=== PATIENT | male | born 1970 | race Caucasian/White ===

== ENCOUNTER 2020-10-27 08:16 | Outpatient (REF) | payer BC, SELFPAY ==
[2020-10-27 11:53] LABS: Alanine Aminotransferase 17 U/L (0-40); Albumin Level 4.1 g/dL (3.5-5.0); Alkaline Phosphatase 53 U/L (39-117); Anion Gap 12 (12-20); Aspartate Amino Transferase 19 U/L (5-37); Bilirubin Total 0.6 mg/dL (0.0-1.0); Blood Urea Nitrogen 14 mg/dL (9-16); Calcium 8.8 mg/dL (8.4-10.2); Carbon Dioxide 30 mmol/L (22-29); Chloride 103 mmol/L (96-108); Cholesterol 206 mg/dL; Estimated Glomerular Filt Rate > 60; Glucose Fasting 92 mg/dL (60-99); HDL Cholesterol 57 mg/dL; LDL Cholesterol Calculated 119 mg/dl; Potassium 4.1 mmol/L (3.3-5.1); Sodium 141 mmol/L (135-145); Triglycerides 151 mg/dL
[2020-10-27 11:58] LABS: Prostate Specific Antigen Scr 0.75 ng/mL (<0.05-4.0); TSH reflex Free T4 1.01 uIU/mL (0.32-4.0)
== END 2020-10-27 08:17 | disposition home or self-care (01) ==
LOC: HO.HMGCLDS 08:16
PROVIDERS: PCP Nurse Practitioner Family; Visit Provider Nurse Practitioner Family
DX: Z00.00 Encounter for general adult medical examination without abnormal findings (principal); Z12.5 Encounter for screening for malignant neoplasm of prostate
CPT/HCPCS: 36415; 80053; 80061; 84153; 84443

== ENCOUNTER 2021-06-29 15:18 | Outpatient (REF) | payer BC, SELFPAY ==
[2021-06-29 17:03] LABS: Blood Urea Nitrogen 15 mg/dL (9-16); Estimated Glomerular Filt Rate > 60
== END 2021-06-29 15:19 | disposition home or self-care (01) ==
LOC: HO.HMGCLDS 15:18
PROVIDERS: PCP Nurse Practitioner Family; Visit Provider Nurse Practitioner Family
DX: K43.9 Ventral hernia without obstruction or gangrene (principal)
CPT/HCPCS: 36415; 82565; 84520

== ENCOUNTER 2021-07-06 14:03 | Outpatient (REF) | payer BC, SELFPAY ==
--- NOTE | ~2021-07-06 | CT_ITS ---
EXAMINATION: CT ABDOMEN AND PELVIS WITH CONTRAST CLINICAL INFORMATION: Left upper quadrant pain COMPARISON: Previous abdominal ultrasound over 2019 TECHNIQUE: Multidetector volumetric images were obtained from the superior aspect of the liver through the pubic symphysis following administration 85 mL of Omnipaque 350 intravenous contrast. Sagittal and coronal reformatted images were obtained on the technologist's workstation. Oral contrast: Yes This CT examination was performed using dose optimization techniques as appropriate, variously including the following: *Automated exposure control *Adjustment of mA and/or kV according to patient size (this includes techniques or standardized protocols for targeted exams where dose is matched to indication/reason for exam; i.e. extremities or head) *Use of iterative reconstruction technique DLP: 387 mGy-cm FINDINGS: LUNG BASES: The visualized lung bases are unremarkable. LIVER, GALLBLADDER, AND BILIARY TREE: The liver is normal in size, shape, and attenuation. No focal hepatic lesion or biliary ductal dilatation is present. The gallbladder is unremarkable with no evidence of radiopaque gallstones, gallbladder wall thickening, or obvious pericholecystic inflammatory changes. PANCREAS: Unremarkable. SPLEEN: Unremarkable. ADRENAL GLANDS: Unremarkable. KIDNEYS AND URETERS: The kidneys are normal in size, shape, and attenuation. No hydronephrosis, hydroureter, or calculi seen. No perinephric stranding. BLADDER: Unremarkable. GASTROINTESTINAL TRACT: The small and large bowel are unremarkable. The appendix is unremarkable. ABDOMINAL WALL: There is a small umbilical hernia containing fat. LYMPH NODES: Normal. VASCULAR: Unremarkable. PELVIC VISCERA: Unremarkable. OSSEOUS STRUCTURES: Unremarkable. CT/CT abdomen pelvis w con IMPRESSION: Small umbilical hernia containing fat otherwise unremarkable exam.
[2021-07-06] MEDS: iohexoL 350 MG/ML 100 ML INFUS..BTL IV (16:36)
[2021-07-06] MEDS: Barium Sulfate Oral (Berry) 450 ML ORAL.SUSP 900 ML PO (16:37)
== END 2021-07-06 14:04 | disposition home or self-care (01) ==
LOC: HO.CT 14:03
PROVIDERS: Visit Provider Nurse Practitioner Family
DX: R10.12 Left upper quadrant pain (principal)
CPT/HCPCS: 74177; Q9967

== ENCOUNTER → 2021-10-13 12:58 | Outpatient (BNVA) | payer SELFPAY | PROVIDERS: PCP Nurse Practitioner Family; Visit Provider Internal Medicine | DX: Z02.79 Encounter for issue of other medical certificate (principal) ==

== ENCOUNTER 2022-10-26 07:16 | Outpatient (REF) | payer BC, SELFPAY ==
[2022-10-26 11:39] LABS: MANUAL DIFF FLAG NO
[2022-10-26 11:49] LABS: Basophils Absolute Auto 0.1 X10*3/uL (0.0-0.2); Basophils Percent Auto 1.2 % (0-2); Eosinophils Absolute Auto 0.3 X10*3/uL (0.0-0.4); Eosinophils Percent Auto 6.8 % (0-4); Hematocrit 48.1 % (42.0-52.0); Hemoglobin 16.6 g/dl (14.0-18.0); Imm Gran Abs Auto 0.01 X10*3/uL (0.00-0.03); Imm Gran Pct Auto 0.2 % (0.0-0.4); Lymphocytes Percent Auto 40.9 % (20-40); Mean Corpuscular HGB Conc 34.5 g/dl (31.0-36.0); Mean Corpuscular Hemoglobin 31.2 pg (27.0-33.0); Mean Corpuscular Volume 90.4 fL (80.0-98.0); Mean Platelet Volume 10.3 fL (9.4-12.4); Monocytes Absolute Auto 0.5 X10*3/uL (0.1-1.2); Monocytes Percent Auto 9.8 % (2-11); Neutrophils Percent Auto 41.1 % (45-73); Platelet Count 240 X10*3/uL (160-400); Red Blood Count 5.32 X10*6/uL (4.60-5.80); White Blood Count 4.8 X10*3/uL (4.8-10.8)
[2022-10-26 12:03] LABS: Appearance Urine Clear; Color Urine Yellow; Glucose Urine UA Negative (Negative); Leukocyte Esterase Urine Negative (Negative); Nitrite Urine Negative (Negative); PH 6.5 (5.0-9.0); Specific Gravity - Urine 1.025 (1.005-1.025); Urine Blood Negative (Negative); Urine Ketones Negative (Negative); Urine Protein Negative (Neg-Trace)
[2022-10-26 12:29] LABS: Alanine Aminotransferase 17 U/L (0-40); Alkaline Phosphatase 50 U/L (39-117); Anion Gap 11 (12-20); Aspartate Amino Transferase 17 U/L (5-37); Bilirubin Total 0.7 mg/dL (0.0-1.0); Blood Urea Nitrogen 18 mg/dL (9-16); Carbon Dioxide 29 mmol/L (22-29); Chloride 105 mmol/L (96-108); Cholesterol 223 mg/dL; Estimated Glomerular Filt Rate > 60; Glucose Fasting 95 mg/dL (60-99); Glucose Random 95 mg/dL (60-115); HDL Cholesterol 53 mg/dL; LDL Cholesterol Calculated 142 mg/dl; Potassium 4.7 mmol/L (3.3-5.1); Sodium 140 mmol/L (135-145); Total Protein 6.8 g/dL (6.5-8.0); Triglycerides 144 mg/dL
[2022-10-26 12:47] LABS: Prostate Specific Antigen Scr 0.67 ng/mL (<0.05-4.0); TSH reflex Free T4 2.18 uIU/mL (0.32-4.0)
== END 2022-10-26 07:17 | disposition home or self-care (01) ==
LOC: HO.HMGCLDS 07:16
PROVIDERS: PCP Nurse Practitioner Family; Visit Provider Nurse Practitioner Family
DX: Z00.00 Encounter for general adult medical examination without abnormal findings (principal); Z12.5 Encounter for screening for malignant neoplasm of prostate; Z20.2 Contact with and (suspected) exposure to infections with a predominantly sexual mode of transmission
CPT/HCPCS: 36415; 80053; 80061; 81003; 84153; 84443; 85025

== ENCOUNTER 2022-12-31 06:01 | Outpatient (REF) | payer BC, SELFPAY ==
[2022-12-31 11:58] LABS: Alanine Aminotransferase 17 U/L (0-40); Albumin Level 3.9 g/dL (3.5-5.0); Alkaline Phosphatase 52 U/L (39-117); Anion Gap 9 (12-20); Aspartate Amino Transferase 19 U/L (5-37); Blood Urea Nitrogen 15 mg/dL (9-16); Calcium 8.7 mg/dL (8.4-10.2); Carbon Dioxide 27 mmol/L (22-29); Chloride 109 mmol/L (96-108); Cholesterol 167 mg/dL; Estimated Glomerular Filt Rate > 60; Glucose Fasting 82 mg/dL (60-99); HDL Cholesterol 57 mg/dL; LDL Cholesterol Calculated 88 mg/dl; Sodium 141 mmol/L (135-145); Total Protein 6.5 g/dL (6.5-8.0); Triglycerides 110 mg/dL
== END 2022-12-31 06:02 | disposition home or self-care (01) ==
LOC: HO.HMGCLDS 06:01
PROVIDERS: PCP Nurse Practitioner Family; Visit Provider Nurse Practitioner Family
DX: E78.5 Hyperlipidemia, unspecified (principal)
CPT/HCPCS: 36415; 80053; 80061

== ENCOUNTER 2023-02-28 10:37 | Outpatient (AMB) | payer BC, SELFPAY ==
--- NOTE | 2023-02-28 11:32 | MHC.OFFWIV ---
Intake Vital Signs 02/28/23 11:33 Height 6 ft 1 in BP 100/60 Blood Pressure Location Rt brachial Position Sitting Pulse 67 Pulse Source Pulse Oximeter Temp 96.8 F Temp Source Temporal Artery Scan Pulse Oximetry (%) 98 Oxygen Delivery Method Room Air Intake Visit Reasons: EP, Cough 2 weeks (Masked) Intake Note: Pt is here c/o bad cough for the last two weeks. Patient Tobacco Use Status: Former Tobacco user Allergies atorvastatin Allergy (Mild, Verified 02/28/23 11:33) diarrhea Do you need a note to return to daycare/school/sports/work: No HPI EP, Cough 2 weeks (Masked) HPI Details Patient presents with 2 weeks of cough mostly at night. 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 He denies fever chills chest pain or shortness of breath or wheezing. No sick contacts at home. He did trial a course of Pepcid in case of acid reflux as told by the pharmacist that this did not make a difference. He did use Delsym which did make a difference at night. He does take a daily allergy pill in the a.m.. He does have history of allergies that he previously used fluticasone but has not needed it this year. [facility] Surgical History History of ankle surgery History of shoulder surgery Family History Father Diabetes mellitus Mother No problems noted. Paternal Grandmother Diabetes mellitus Son No problems noted. Daughter No problems noted. Social History Housing: House Alcohol intake: current Alcohol intake frequency: a few times a week Patient Tobacco Use Status: Former Tobacco user e-Cigarette/Vaping Use: Never Used Second Hand Smoke Exposure: No service: No Current occupational status: unemployed Current occupational exposures/hazards: No Cognitive needs: No Hearing needs: No Vision needs: No Review of Systems Const Reports as per HPI and Reports no additional complaints ENT Reports no additional complaints and Reports as per HPI Card Reports as per HPI and Reports no additional complaints Resp Reports as per HPI and Reports no additional complaints GI Reports as per HPI and Reports no additional complaints Skin/Breast Denies lesions Neuro Reports no additional complaints and Reports as per HPI Physical Exam Vital Signs: Last Vital Signs Temp 96.8 F 02/28/23 11:33 Pulse 67 02/28/23 11:33 BP 100/60 02/28/23 11:33 Pulse Ox 98 02/28/23 11:33 Oxygen Delivery Method Room Air 02/28/23 11:33 Const General: cooperative, comfortable and no acute distress Orientation/consciousness: patient oriented x3 HEENT General nose exam: Normal external nose present and Normal nares present Face and sinus: Yes normal facial exam and Yes sinuses nontender Mouth: Normal oral and palatal mucosa present Throat: Yes posterior oropharynx normal Resp Effort & Inspection: normal respiratory effort Auscultation: clear to auscultation bilaterally Cardio Rate: regular rate Rhythm: regular rhythm Heart sounds: S1 normal heart sound present and S2 normal heart sound present Neuro General: patient oriented x3 Extrem General: Yes no pedal edema Assessment & Plan Assessment & Plan (1) Cough: Code(s): R05.9 - Cough, unspecified Qualifiers: Cough type: subacute Qualified Code(s): R05.2 - Subacute cough Plan: Advised patient nighttime cough is often related to allergies or asthma. He does not have wheezing advised to try his allergy pill in the evening versus a.m.. I did offer him Tessalon Perles however for now he will continue with Delsym p.r.n.. Return to clinic if symptoms persist do not improve or worsen in any way. Coding Level of Care Code Est Pt Level 3 (40651) Diagnoses Cough R05.2 Cough type: subacute
[2023-02-28 11:33] VITALS: BP 100/60; PULSE 67; TEMP 36; O2SAT 98
== END 2023-02-28 12:09 | disposition home or self-care (01) ==
PROVIDERS: PCP Nurse Practitioner Family; Visit Provider Physician Assistant
DX: R05.2 Subacute cough (principal)
CPT/HCPCS: 99213

== ENCOUNTER 2023-03-14 15:10 | Outpatient (AMB) | payer BC, SELFPAY ==
[2023-03-14 15:22] VITALS: BP 112/78; PULSE 70; TEMP 36.7; O2SAT 99
--- NOTE | 2023-03-14 15:22 | AM.OFFWIN_ITS ---
Intake Vital Signs 03/14/23 15:22 Height 6 ft 1 in BP 112/78 Blood Pressure Location Lt brachial Position Sitting Pulse 70 Pulse Source Pulse Oximeter Temp 98.1 F Temp Source Oral Pulse Oximetry (%) 99 Oxygen Delivery Method Room Air Intake Visit Reasons: PE cough still for over a month (lobby) Intake Note: Pt is here today for bad cough Patient Tobacco Use Status: Former Tobacco user Allergies atorvastatin Allergy (Mild, Verified 03/14/23 15:22) diarrhea Do you need a note to return to daycare/school/sports/work: No HPI HPI Comments History of Present Illness Details 52-year-old male presents with persistent cough. Was evaluated several times for this cough, and was given [id number] medications, and allergy m edications for suspected postnasal drip. Patient states that the measures have not alleviated his symptoms. [facility] Surgical History History of ankle surgery History of shoulder surgery Family History Father Diabetes mellitus Mother No problems noted. Paternal Grandmother Diabetes mellitus Son No problems noted. Daughter No problems noted. Social History Housing: House Alcohol intake: current Alcohol intake frequency: a few times a week Patient Tobacco Use Status: Former Tobacco user e-Cigarette/Vaping Use: Never Used Second Hand Smoke Exposure: No service: No Current occupational status: unemployed Current occupational exposures/hazards: No Cognitive needs: No Hearing needs: No Vision needs: No Review of Systems Const Details: Constitutional: No Fever, No Chills Cardiovascular: No Chest Pain, No SOB Respiratory: Positive Cough, No Dyspnea Gastrointestinal: No Nausea, No Vomiting, No Diarrhea, No abdominal Pain Genitourinary: No Dysuria, No Hematuria Musculoskeletal: No joint pain, No Myalgias, No Joint Swelling Skin: No Skin lacerations, No rash Neuro: No Weakness, No Dizziness, No Headache All systems reviewed & are unremarkable except as noted in HPI and below Physical Exam Vital Signs: Last Vital Signs Temp 98.1 F 03/14/23 15:22 Pulse 70 03/14/23 15:22 BP 112/78 03/14/23 15:22 Pulse Ox 99 03/14/23 15:22 Oxygen Delivery Method Room Air 03/14/23 15:22 Appearance: Alert. Oriented X3. No acute distress. Eyes: Pupils equal, round and reactive to light. ENT: Pharynx normal. Neck: Normal inspection. Neck supple. CVS: Normal heart rate and rhythm. Pulses normal. Respiratory: No respiratory distress. Lung sounds clear to auscultation all lobes. Skin: Skin warm and dry. Normal skin color. Normal skin turgor. Extremities: Gait well balanced well coordinated. No edema noted. Neuro: No motor deficit. No sensory deficit. Cranial nerves 2-12 intact. Assessment & Plan Assessment & Plan (1) Cough: Code(s): R05.9 - Cough, unspecified Plan 52-year-old male presents with recurrent cough, has had this for several months. Was treated with several different methods for suspected viral syndrome versus postnasal drip and symptoms have not improved. States the cough worsens when he is resting, and is not associated with shortness of breath, fevers, chills, or diaphoresis. He also does not report any swelling in his hands and feet. Does not take any Gil or Arb. Order for chest x-ray, I do have a suspicion for GERD. Will treat with omeprazole, as he states this medication has been effective for him in the past. He did have an upper endoscopy about a year ago which was negative for acute findings. If patient's x-ray is positive, will call in appropriate medications for him. Patient verbalized understanding of discharge instructions. Verbalized understandings of signs and symptoms indicating need for emergent intervention. Orders: Orders XR chest 2V Today R05.9 - Cough, unspecified Medications: New omeprazole 20 mg PO DAILY 30 caps 3RF Patient Instructions: You were evaluated for recurrent cough. Your x-ray results are pending. I will call you with the results. Take omeprazole 20 mg daily. Thank you for choosing this urgent care for evaluation. Please follow-up with primary care physician as needed. Return to the emergency department for any new, concerning, or worsening symptoms. Coding Level of Care Code Est Pt Level 3 (30547) Diagnoses Cough R05.9
== END 2023-03-14 17:00 | disposition home or self-care (01) ==
LOC: HO.HMGWI 15:10
PROVIDERS: PCP Nurse Practitioner Family
DX: R05.9 Cough, unspecified (principal)
CPT/HCPCS: 99213

== ENCOUNTER 2023-03-14 16:28 | Outpatient (REF) | payer BC, SELFPAY ==
--- NOTE | ~2023-03-14 | XR_ITS ---
EXAMINATION: CHEST 2 VIEWS CLINICAL INFORMATION: R05.9 - Cough, unspecified. COMPARISON: No recent pertinent prior studies are available for comparison. TECHNIQUE: PA and lateral views of the chest obtained. FINDINGS: The lungs are well expanded. No focal infiltrate, effusion, edema, or pneumothorax. Cardiac and mediastinal silhouettes are within normal limits for technique. No acute bony abnormality seen XR/XR chest 2V IMPRESSION: No evidence of acute disease
== END 2023-03-14 16:29 | disposition home or self-care (01) ==
LOC: HO.HMGCX 16:28
PROVIDERS: PCP Nurse Practitioner Family; Visit Provider Nurse Practitioner Family
DX: R05.9 Cough, unspecified (principal)
CPT/HCPCS: 71046

== ENCOUNTER → 2023-09-05 08:37 | Outpatient (BNVA) | payer SELFPAY | PROVIDERS: PCP Nurse Practitioner Family; Visit Provider Internal Medicine | DX: Z02.79 Encounter for issue of other medical certificate (principal) ==

== ENCOUNTER 2023-11-08 15:58 | Outpatient (AMB) | payer BC, SELFPAY ==
[2023-11-08 16:01] VITALS: BP 116/72; PULSE 68; O2SAT 98; BMI 25.6
--- NOTE | 2023-11-08 16:01 | MHC.PC.OV ---
Vital Signs 11/08/23 16:01 Height 6 ft 1 in Weight 194 lb 4 oz BMI 25.6 BP 116/72 Blood Pressure Location Lt brachial Position Sitting Pulse 68 Pulse Source Pulse Oximeter Pulse Oximetry (%) 98 Oxygen Delivery Method Room Air Intake Visit Reasons: PE Intake Note: pt is here for physical exam, reports no concerns Applications Coordinator Required: No Accompanied by: Self / Same As Patient Allergies atorvastatin Allergy (Mild, Verified 11/08/23 16:02) diarrhea Medication List - Last Reconciled 11/08/23 by RITA Clarke fluoxetine 20 mg PO DAILY 90 days fluticasone propionate 50 mcg/actuation 2 sprays intranasal DAILY omeprazole 20 mg PO DAILY simvastatin 10 mg PO BEDTIME Tobacco use date assessed: 11/08/23 Dental Screening Dental Screen Date: 11/08/23 Did you have a dental visit in the last 12 months?: Yes Did you have a dental problem in the last 6 months where you did not have access to dental care?: No Was dental information given to patient?: Patient has dentist HPI PE HPI Details Pt is here for a PE. Will order labs. Colon screen is up to date. Due for PSA, will order. Denies dribbling with urination, weak stream, and frequent nocturia. Pt does see a cook station [facility] Surgical History History of shoulder surgery History of ankle surgery Family History Father Diabetes mellitus Mother No problems noted. Paternal Grandmother Diabetes mellitus Son No problems noted. Daughter No problems noted. Social History Housing: House Alcohol intake: current Alcohol intake frequency: a few times a week Patient Tobacco Use Status: Former Tobacco user e-Cigarette/Vaping Use: Never Used Second Hand Smoke Exposure: No service: No Current occupational status: unemployed Current occupational exposures/hazards: No Cognitive needs: No Hearing needs: No Vision needs: No Questionnaire PHQ-9 Over the last 2 weeks, how often have you been bothered by any of the following problems? 1. Little interest or pleasure in doing things: not at all 2. Feeling down, depressed, or hopeless: not at all 3. Trouble falling or staying asleep, or sleeping too much: not at all 4. Feeling tired or having little energy: not at all 5. Poor appetite or overeating: not at all 6. Feeling bad about yourself - or that you are a failure or have let yourself or your family down: not at all 7. Trouble concentrating on things, such as reading the newspaper or watching television: not at all 8. Moving or speaking so slowly that other people could have noticed. Or the opposite - being so fidgety or restless that you have been moving around a lot more than usual: not at all 9. Thoughts that you would be better off or of hurting yourself in some way: not at all Total score: 0 Depression Screening Interpretation: Negative Depression Screening Done: Yes 59460 - PHQ-9 Billing: Yes Source: Developed by Drs. Adolfo Pretty, Natacha Ignacio, Juan Beltran and colleagues, with an educational eron from [employer]. Thrive Questionnaire Date Thrive assessed: 11/08/23 I am a: Patient What is your living situation today?: I have a steady place to live Within the past 12 months, did the food you bought not last and you didn't have the money to get more?: Never true Within the past 12 months, did you worry whether your food would run out before you got money to buy more?: Never true Do you have trouble paying for medicines?: No Do you have trouble getting transportation to medical appointments?: No Do you have trouble paying your heating and electricity bill?: No Do you have trouble taking care of your child, family member or friend?: No Do you have trouble with day-to-day activities such as bathing, preparing meals, shopping, managing finances, etc.?: No Are you currently unemployed and looking for a job?: No Are you interested in more education?: No Please select the resources that you would like help with: None Currently or been in a relationship where the following occur: no concerns reported THRIVE Score: 0 AUDIT C Alcohol Use Questionnaire (AUDIT-C) 1. How often do you have a drink containing alcohol?: 2-4 times a month 2. How many drinks containing alcohol do you have on a typical day when you are drinking?: 1 or 2 3. How often do you have six or more drinks on one occasion?: Never Total Score: 2 Score Reviewed/Action Taken: Yes NALLELY-7 AMB Questionnaire NALLELY-7 Date NALLELY - 7 assessed: 11/08/23 Feeling nervous, anxious, or on edge: 0 = Not at all Not being able to stop or control worryin = Not at all Worrying too much about different things: 0 = Not at all Trouble relaxin = Not at all Being so restless that it is hard to sit still: 0 = Not at all Becoming easily annoyed or irritable: 0 = Not at all Feeling afraid as if something awful might happen: 0 = Not at all Total NALLELY-7 score (0-4 normal; 5-9 mild; 10-14 moderate; 15-21 severe): 0 Source: Developed by Drs. Adolfo Pretty, Natacha Ignacio, Juan Beltran and colleagues, with an educational eron from [employer]. NALLELY-7 Assessment Billing NALLELY-7 Assessment Tool: NALLELY-7 Assessment 62744 Review of Systems Const Denies chills and Denies fever(s) Eyes Denies blurry vision ENT Denies vertigo, Denies dizziness and Denies sore throat Card Denies chest pain at rest, Denies chest pain with activity, Denies diaphoresis, Denies dyspnea and Denies dyspnea on exertion Resp Denies cough, Denies dyspnea, Denies dyspnea on exertion and Denies wheezing GI Denies abdominal pain, Denies melena, Denies hematochezia, Denies constipation, Denies diarrhea and Denies loose stools Denies hematuria Musc Denies numbness and Denies tingling Skin/Breast Denies lesions Neuro Denies vertigo, Denies dizziness, Denies numbness and Denies tingling Psych Denies anxiety, Denies depression, Denies homicidal ideation, Denies suicidal ideation and Denies other (substance abuse) Aller/Immun Denies wheezing Physical exam (Primary Care) Vital Signs: Last Vital Signs Pulse 68 11/08/23 16:01 BP 116/72 11/08/23 16:01 Pulse Ox 98 11/08/23 16:01 Oxygen Delivery Method Room Air 11/08/23 16:01 BMI result Body Mass Index 25.6 Tobacco/Smoking Status: Tobacco use Status Tobacco use date assessed 11/08/23 11/08/23 16:10 Patient Tobacco Use Status Former Tobacco user 11/08/23 16:03 e-Cigarette/Vaping Use Never Used 11/08/23 16:03 PHQ-9: PHQ-9 Score PHQ-9: Total score 0 11/08/23 16:36 Depression Screening Interpretation: Negative Thrive Assessment: Date of Thrive Assessment Date Thrive assessed 11/08/23 11/08/23 16:10 Currently or been in a relationship where the following occur: no concerns reported Const General: cooperative Nutritional Appearance: well nourished Orientation/consciousness: patient oriented x3 HENMT Head: Yes normal to inspection, Yes normocephalic and Yes atraumatic Ears: TM's normal bilaterally Eyes General: appearance normal, both eyes and all related structures Alignment and Position: alignment normal and position normal Neck Neck: Yes normal visual inspection and Yes no lymphadenopathy Thyroid: Thyroid normal Resp Effort & Inspection: normal respiratory effort Auscultation: clear to auscultation bilaterally Cardio Rate: regular rate Rhythm: regular rhythm Heart sounds: S1 normal heart sound present, S2 normal heart sound present and no murmurs GI Palpation (GI): Soft to palpation and nontender Auscultation: normal bowel sounds Male General Exam: Yes normal external exam Penis: normal penis Scrotum: scrotum normal, testes descended bilaterally and no inguinal hernias Testes: no testicular mass Skin Rashes: no rashes Neuro General: patient oriented x3, moves all extremities, no focal motor deficits and deep tendon reflexes 2+ bilaterally Romberg Test: Negative Psych Appearance: grossly normal Mental Status: mental status grossly normal Speech and movement: Normal speech and movement present Affect: normal affect Attitude: cooperative Thought process: Normal thought process present Thought content: Normal thought content present Insight: Good insight present (Psych) Judgement: Good judgement present (Psych) Assessment and Plan Assessment & Plan (1) Physical exam: Code(s): Z00.00 - Encounter for general adult medical examination without abnormal findings Plan: Labs ordered (2) Screening PSA (prostate specific antigen): Code(s): Z12.5 - Encounter for screening for malignant neoplasm of prostate Plan: PSA ordered Orders: Orders UA CC w/rflx Micro + Cult Today Z00.00 - Encounter for general adult medical examination without abnormal findings Lipid Panel Today Z00.00 - Encounter for general adult medical examination without abnormal findings Prostate Specific Antigen Scr Today Z12.5 - Encounter for screening for malignant neoplasm of prostate Complete Blood Count Auto Diff Today Z00.00 - Encounter for general adult medical examination without abnormal findings Comprehensive Maribel. Panel Fast Today Z00.00 - Encounter for general adult medical examination without abnormal findings TSH reflex Free T4 Today Z00.00 - Encounter for general adult medical examination without abnormal findings Coding Level of Care Code Est Pt Prev Care 40-64y(68747) Diagnoses Physical exam Z00.00 Screening PSA (prostate specific antigen) Z12.5 Additional Codes NALLELY-7 Assessment Billing - NALLELY-7 Assessment Tool: NALLELY-7 Assessment [id number] ([id number])
== END 2023-11-08 17:11 | disposition home or self-care (01) ==
PROVIDERS: Visit Provider Nurse Practitioner Family
DX: Z00.00 Encounter for general adult medical examination without abnormal findings (principal); Z12.5 Encounter for screening for malignant neoplasm of prostate
CPT/HCPCS: 99396

== ENCOUNTER 2023-11-09 07:58 | Outpatient (REF) | payer BC, SELFPAY ==
[2023-11-09 11:11] LABS: MANUAL DIFF FLAG NO
[2023-11-09 11:39] LABS: Appearance Urine Clear; Color Urine Yellow; Glucose Urine UA Negative (Negative); Leukocyte Esterase Urine Negative (Negative); Nitrite Urine Negative (Negative); PH 6.5 (5.0-9.0); Urine Blood Negative (Negative); Urine Ketones Negative (Negative); Urine Protein Negative (Neg-Trace)
[2023-11-09 11:47] LABS: Basophils Absolute Auto 0.1 X10*3/uL (0.0-0.2); Basophils Percent Auto 1.2 % (0-2); Eosinophils Absolute Auto 0.3 X10*3/uL (0.0-0.4); Eosinophils Percent Auto 7.2 % (0-4); Hematocrit 46.2 % (42.0-52.0); Imm Gran Abs Auto 0.01 X10*3/uL (0.00-0.03); Imm Gran Pct Auto 0.2 % (0.0-0.4); Lymphocytes Absolute Auto 1.4 X10*3/uL (1.2-4.9); Lymphocytes Percent Auto 34.9 % (20-40); Mean Corpuscular HGB Conc 34.6 g/dl (31.0-36.0); Mean Corpuscular Volume 89.5 fL (80.0-98.0); Mean Platelet Volume 9.9 fL (9.4-12.4); Monocytes Absolute Auto 0.5 X10*3/uL (0.1-1.2); Monocytes Percent Auto 11.2 % (2-11); Neutrophils Absolute Auto 1.8 x10*3/uL (2.0-8.3); Neutrophils Percent Auto 45.3 % (45-73); Platelet Count 247 X10*3/uL (160-400); Red Blood Count 5.16 X10*6/uL (4.60-5.80); Red Cell Distribution Width 12.9 % (11.0-16.0)
[2023-11-09 12:37] LABS: Alanine Aminotransferase 21 U/L (0-40); Albumin Level 3.9 g/dL (3.5-5.0); Alkaline Phosphatase 55 U/L (39-117); Anion Gap 11 (12-20); Aspartate Amino Transferase 17 U/L (5-37); Bilirubin Total 0.5 mg/dL (0.0-1.0); Blood Urea Nitrogen 16 mg/dL (9-16); Carbon Dioxide 27 mmol/L (22-29); Chloride 104 mmol/L (96-108); Cholesterol 159 mg/dL (<200); Estimated Glomerular Filt Rate > 60; Glucose Fasting 93 mg/dL (60-99); HDL Cholesterol 47 mg/dL (>40); LDL Cholesterol Calculated 87 mg/dL (<100); Potassium 4.4 mmol/L (3.3-5.1); Sodium 138 mmol/L (135-145); TSH reflex Free T4 1.48 uIU/mL (0.32-4.0); Total Protein 6.9 g/dL (6.5-8.0); Triglycerides 127 mg/dL (<150)
== END 2023-11-09 07:59 | disposition home or self-care (01) ==
LOC: HO.HMGCLDS 07:58
PROVIDERS: PCP Nurse Practitioner Family; Visit Provider Nurse Practitioner Family
DX: Z00.00 Encounter for general adult medical examination without abnormal findings (principal); Z12.5 Encounter for screening for malignant neoplasm of prostate; Z13.6 Encounter for screening for cardiovascular disorders
CPT/HCPCS: 36415; 80053; 80061; 81003; 84153; 84443; 85025

== ENCOUNTER 2023-11-11 09:17 | Outpatient (AMB) | payer BC, SELFPAY ==
--- NOTE | 2023-11-11 09:32 | MHC.OFFWIV ---
Intake Vital Signs 11/11/23 09:33 Height 6 ft 1 in Weight 197 lb BMI 26.0 BP 130/90 H Blood Pressure Location Lt brachial Position Sitting Pulse 65 Pulse Source Pulse Oximeter Temp 97.1 F Temp Source Temporal Artery Scan Pulse Oximetry (%) 96 Oxygen Delivery Method Room Air Intake Visit Reasons: EP LFT thumb infected Intake Note: pt is here today fo lft thumb infection started 2 weeks ago Patient Tobacco Use Status: Former Tobacco user Allergies atorvastatin Allergy (Mild, Verified 11/11/23 09:36) diarrhea Do you need a note to return to daycare/school/sports/work: No HPI EP LFT thumb infected HPI Details This is a 53 year old male patient who presents today with an infection around the nailbed of of left thumb. 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 He initially used hydrogen peroxide and topical antibiotic, and the area appeared to be improving, however yesterday he noticed increased redness and tenderness of area, with redness starting to spread proximally up his thumb. Denies any fever/chills. [facility] Surgical History History of shoulder surgery History of ankle surgery Family History Father Diabetes mellitus Mother No problems noted. Paternal Grandmother Diabetes mellitus Son No problems noted. Daughter No problems noted. Social History Housing: House Alcohol intake: current Alcohol intake frequency: a few times a week Patient Tobacco Use Status: Former Tobacco user e-Cigarette/Vaping Use: Never Used Second Hand Smoke Exposure: No service: No Current occupational status: unemployed Current occupational exposures/hazards: No Cognitive needs: No Hearing needs: No Vision needs: No Review of Systems Const All systems reviewed & are unremarkable except as noted in HPI and below Physical Exam Vital Signs: Last Vital Signs Temp 97.1 F 11/11/23 09:33 Pulse 65 11/11/23 09:33 BP 130/90 H 11/11/23 09:33 Pulse Ox 96 11/11/23 09:33 Oxygen Delivery Method Room Air 11/11/23 09:33 BMI result Body Mass Index 26.0 Const General: cooperative, healthy appearing and no acute distress Resp Effort & Inspection: normal respiratory effort Extrem Left upper extremity: hand (erythema, tenderness surrounding nailbed left thumb, no drainable abscess) Details: normal capillary refill Psych Appearance: grossly normal Mental Status: mental status grossly normal Assessment & Plan Assessment & Plan (1) Cellulitis of thumb, left: Code(s): L03.012 - Cellulitis of left finger Plan: Patient has tried conservative measures at home. Advised he can continue to use epsom salt soaks and to keep area clean and dry. Will start him on a short course of Cefadroxil. Reviewed indications, use, possible side effects of medication. If he does not improve with treatment or if the infection appears to be worsening with increased pain, redness, warmth, abscess development, fever/chills, he should return to the clinic for evaluation. He verbalizes understanding and agrees to plan. Medications: New cefadroxil 500 mg PO BID 5 days 10 caps 0RF L03.012 - Cellulitis of left finger Coding Level of Care Code Est Pt Level 3 (79127) Diagnoses Cellulitis of thumb, left L03.012
[2023-11-11 09:33] VITALS: BP 130/90; PULSE 65; TEMP 36.2; O2SAT 96; BMI 26.0
== END 2023-11-11 10:25 | disposition home or self-care (01) ==
PROVIDERS: PCP Nurse Practitioner Family; Visit Provider Nurse Practitioner Family
DX: L03.012 Cellulitis of left finger (principal)
CPT/HCPCS: 99213

== ENCOUNTER 2024-03-23 06:57 | Outpatient (REF) | payer BC, SELFPAY ==
[2024-03-23 10:01] LABS: MANUAL DIFF FLAG NO
[2024-03-23 10:19] LABS: Basophils Absolute Auto 0.1 X10*3/uL (0.0-0.2); Basophils Percent Auto 1.3 % (0-2); Eosinophils Absolute Auto 0.2 X10*3/uL (0.0-0.4); Eosinophils Percent Auto 5.2 % (0-4); Hematocrit 46.9 % (42.0-52.0); Hemoglobin 16.6 g/dl (14.0-18.0); Imm Gran Abs Auto 0.01 X10*3/uL (0.00-0.03); Imm Gran Pct Auto 0.2 % (0.0-0.4); Lymphocytes Absolute Auto 1.5 X10*3/uL (1.2-4.9); Lymphocytes Percent Auto 33.3 % (20-40); Mean Corpuscular HGB Conc 35.4 g/dl (31.0-36.0); Mean Corpuscular Hemoglobin 31.6 pg (27.0-33.0); Mean Corpuscular Volume 89.3 fL (80.0-98.0); Mean Platelet Volume 10.1 fL (9.4-12.4); Monocytes Absolute Auto 0.5 X10*3/uL (0.1-1.2); Monocytes Percent Auto 10.7 % (2-11); Neutrophils Absolute Auto 2.3 x10*3/uL (2.0-8.3); Neutrophils Percent Auto 49.3 % (45-73); Platelet Count 233 X10*3/uL (160-400); Red Blood Count 5.25 X10*6/uL (4.60-5.80); Red Cell Distribution Width 13.1 % (11.0-16.0); White Blood Count 4.6 X10*3/uL (4.8-10.8)
[2024-03-23 10:38] LABS: Iron 136 mcg/dL (45-160); Percent Iron Saturation 46 % (15-50); Total Iron Binding Capacity 293 mcg/dL (228-428); Unsaturated Iron Binding 157 ug/dL
[2024-03-23 11:05] LABS: Ferritin 305 ng/mL (20-250); Vitamin D 25-OH Total 70.2 ng/mL (>30)
[2024-03-23 11:08] LABS: Vitamin B12 336 pg/mL (200-900)
[2024-03-26 15:07] LABS: A. Phagocytphilium DNA,RT-PCR NOT DETECTED (NOT DETECTED); Babesia Microti DNA, RT-PCR NOT DETECTED (NOT DETECTED); Borrelia Miyamotoi,DNA RT-PCR NOT DETECTED (NOT DETECTED); E.Chaffeensis DNA RT-PCR NOT DETECTED (NOT DETECTED); Lyme(Borrelia ssp)DNA RT-PCR NOT DETECTED (NOT DETECTED)
[2024-03-26 22:48] LABS: Lyme Abs Screen <0.90 index
[2024-03-29 21:44] LABS: Testosterone, Free 58.7 pg/mL (35.0-155.0); Testosterone, Total 399 ng/dL (250-1100)
== END 2024-03-23 06:58 | disposition home or self-care (01) ==
LOC: HO.HMGCLDS 06:57
PROVIDERS: PCP Nurse Practitioner Family; Visit Provider Nurse Practitioner Family
DX: D72.819 Decreased white blood cell count, unspecified (principal); R53.83 Other fatigue
CPT/HCPCS: 36415; 82306; 82607; 82728; 82746; 83540; 84402; 84403; 85025; 86617; 86618; 87468; 87469; 87478; 87484; 87798

== ENCOUNTER 2024-11-14 09:00 | Outpatient (AMB) | payer BC, SELFPAY ==
[2024-11-14 09:15] VITALS: BP 130/88; PULSE 67; RESP 17; TEMP 36.7; O2SAT 99; BMI 25.5
--- NOTE | 2024-11-14 09:15 | MHC.PC.OV ---
Vital Signs 11/14/24 09:15 Height 6 ft 1 in Weight 193 lb 6 oz BMI 25.5 BP 130/88 Blood Pressure Location Rt brachial Position Sitting Respiration 17 Pulse 67 Pulse Source Pulse Oximeter Temp 98.1 F Temp Source Oral Pulse Oximetry (%) 99 Oxygen Delivery Method Room Air Intake Visit Reasons: Annual PE Intake Note: Pt is here today for his Annual Physical. Allergies atorvastatin Allergy (Mild, Verified 11/14/24 10:21) diarrhea Medication List - Last Reconciled 11/14/24 by BEN Clarke- fluoxetine 20 mg PO DAILY 90 days omeprazole 20 mg PO DAILY simvastatin 10 mg PO BEDTIME Tobacco use date assessed: 11/14/24 Dental Screening Dental Screen Date: 11/14/24 Did you have a dental visit in the last 12 months?: Yes Did you have a dental problem in the last 6 months where you did not have access to dental care?: No Was dental information given to patient?: Patient has dentist HPI Annual PE HPI Details History of Present Illness The patient is a 54-year-old male presenting for a wellness visit with a focus on preventive health screening. He is overdue for his scheduled colonic neoplasm screening, which he intends to pursue next winter. He reports no symptoms related to gastrointestinal health, such as rectal bleeding, constipation, or diarrhea, and denies experiencing urinary issues. Similarly, he denies any occurrences of chest pain, dyspnea, blurred vision, or psychosocial distress such as suicidal or homicidal ideation during the consultation. His narrative supports the absence of acute symptoms, aligning the visit with preventive health measures. Health Maintenance - Colonic neoplasm screening discussed; patient plans to schedule it for next winter. Social History Review of Systems - Hematologic/Lymphatic: Denies any blood in stool. - Respiratory: Denies shortness of breath. - Cardiovascular: Denies chest pain. - Gastrointestinal: Denies constipation, diarrhea. - Genitourinary: Denies any urinary issues. - Neurological: Denies blurred vision. - Psychiatric: Denies any suicidal or homicidal ideation. Physical Exam General: Cooperative, healthy appearing, comfortable, no acute distress and well developed Orientation: Patient oriented x3 Limitations: No limitations Head: Normal to inspection Ears: Hearing grossly normal bilaterally Nose: Normal external nose present Face and sinus: Normal facial exam Eyes: Appearance normal, both eyes and all related structures Neck: Normal visual inspection and Yes full ROM Respiratory: Normal respiratory effort and able to speak in complete sentences. Clear to auscultation bilaterally Cardiovascular: Regular rate and rhythm. Normal S1 and S2 GI: Normal to inspection. Soft to palpation and nontender Skin: No rashes or lesions noted Neuro: Patient oriented x3 Extremities: Normal to inspection Results Plan During this wellness visit, the patient is overdue for a colonic neoplasm screening and plans to arrange this test for next winter. Scheduling with a manager bridge is advised to ensure this screening occurs. Additionally, a fasting lab assessment will be conducted soon to monitor general health parameters accurately. The absence of symptoms such as pain, dyspnea, or gastrointestinal issues suggests a focus on preventive care. Discussion Notes The conversation centered around the importance of completing the overdue colonic neoplasm screening to ensure early detection of potential colorectal malignancies. The patient understands the relevance of scheduling this procedure with a manager bridge for next winter as planned. He has been advised on the necessity of a fasting lab test for future assessment of health. There was a dialogue regarding the importance of conducting routine screenings and preventive measures despite the absence of acute symptoms. Patient Instructions - Schedule colonic neoplasm screening for winter with a manager bridge. - Complete a fasting lab test as instructed in the near future. - Monitor for any new symptoms and report if they occur. [facility] Medical History Anxiety Surgical History History of shoulder surgery History of ankle surgery Family History Father Diabetes mellitus Mother No problems noted. Paternal Grandmother Diabetes mellitus Son No problems noted. Daughter No problems noted. Social History Housing: House Alcohol intake: current Alcohol intake frequency: a few times a week Patient Tobacco Use Status: Former Tobacco user e-Cigarette/Vaping Use: Never Used Second Hand Smoke Exposure: No service: No Current occupational status: unemployed Current occupational exposures/hazards: No Cognitive needs: No Hearing needs: No Vision needs: No Questionnaire PHQ-9 Over the last 2 weeks, how often have you been bothered by any of the following problems? 1. Little interest or pleasure in doing things: not at all 2. Feeling down, depressed, or hopeless: not at all 3. Trouble falling or staying asleep, or sleeping too much: not at all 4. Feeling tired or having little energy: not at all 5. Poor appetite or overeating: not at all 6. Feeling bad about yourself - or that you are a failure or have let yourself or your family down: not at all 7. Trouble concentrating on things, such as reading the newspaper or watching television: not at all 8. Moving or speaking so slowly that other people could have noticed. Or the opposite - being so fidgety or restless that you have been moving around a lot more than usual: not at all 9. Thoughts that you would be better off or of hurting yourself in some way: not at all Total score: 0 Depression Screening Interpretation: Negative Depression Screening Done: Yes 89691 - PHQ-9 Billing: Yes Source: Developed by Drs. Adolfo Pretty, Natacha Ignacio, Juan Beltran and colleagues, with an educational eron from [employer]. Thrive Questionnaire Date Thrive assessed: 11/14/24 I am a: Patient What is your living situation today?: I have a steady place to live Within the past 12 months, did the food you bought not last and you didn't have the money to get more?: Never true Within the past 12 months, did you worry whether your food would run out before you got money to buy more?: I choose not to answer this question Do you have trouble paying for medicines?: No Do you have trouble getting transportation to medical appointments?: No Do you have trouble paying your heating and electricity bill?: No Do you have trouble taking care of your child, family member or friend?: No Do you have trouble with day-to-day activities such as bathing, preparing meals, shopping, managing finances, etc.?: No Are you currently unemployed and looking for a job?: No Are you interested in more education?: No Please select the resources that you would like help with: None Currently or been in a relationship where the following occur: No concerns reported THRIVE Score: 0 AUDIT C Alcohol Use Questionnaire (AUDIT-C) 1. How often do you have a drink containing alcohol?: 2-3 times a week 2. How many drinks containing alcohol do you have on a typical day when you are drinking?: 1 or 2 3. How often do you have six or more drinks on one occasion?: Never Total Score: 3 Score Reviewed/Action Taken: Yes NALLELY-7 AMB Questionnaire NALLELY-7 Date NALLELY - 7 assessed: 11/14/24 Feeling nervous, anxious, or on edge: 0 = Not at all Not being able to stop or control worryin = Not at all Worrying too much about different things: 0 = Not at all Trouble relaxin = Not at all Being so restless that it is hard to sit still: 0 = Not at all Becoming easily annoyed or irritable: 0 = Not at all Feeling afraid as if something awful might happen: 0 = Not at all Total NALLELY-7 score (0-4 normal; 5-9 mild; 10-14 moderate; 15-21 severe): 0 Source: Developed by Drs. Adolfo Pretty, Natacha Ignacio, Juan Beltran and colleagues, with an educational eron from [employer]. NALLELY-7 Assessment Billing NALLELY-7 Assessment Tool: NALLELY-7 Assessment 78718 Physical exam (Primary Care) Vital Signs: Last Vital Signs Temp 98.1 F 11/14/24 09:15 Pulse 67 11/14/24 09:15 Resp 17 11/14/24 09:15 BP 130/88 11/14/24 09:15 Pulse Ox 99 11/14/24 09:15 Oxygen Delivery Method Room Air 11/14/24 09:15 BMI result Body Mass Index 25.5 Tobacco/Smoking Status: Tobacco use Status Tobacco use date assessed 11/14/24 11/14/24 09:17 Patient Tobacco Use Status Former Tobacco user 11/14/24 09:17 e-Cigarette/Vaping Use Never Used 11/14/24 09:17 PHQ-9: PHQ-9 Score PHQ-9: Total score 0 11/14/24 09:26 Depression Screening Interpretation: Negative Thrive Assessment: Date of Thrive Assessment Date Thrive assessed 11/14/24 11/14/24 09:17 Currently or been in a relationship where the following occur: No concerns reported Coding Level of Care Code Est Pt Prev Care 40-64y(20361) Diagnoses Physical exam Z00.00 Screening PSA (prostate specific antigen) Z12.5 Additional Codes NALLELY-7 Assessment Billing - NALLELY-7 Assessment Tool: NALLELY-7 Assessment 21590 ([id number]) PHQ-9 - 22707 - PHQ-9 Billing: Yes ([id number]) Assessment & Plan Assessment & Plan (1) Physical exam: Code(s): Z00.00 - Encounter for general adult medical examination without abnormal findings Category: Medical (2) Screening PSA (prostate specific antigen): Code(s): Z12.5 - Encounter for screening for malignant neoplasm of prostate Category: Medical Plan . Orders: Orders Comprehensive [place]. Panel Fast Today Z00.00 - Encounter for general adult medical examination without abnormal findings Complete Blood Count Auto Diff Today Z00.00 - Encounter for general adult medical examination without abnormal findings TSH reflex Free T4 Today Z00.00 - Encounter for general adult medical examination without abnormal findings UA CC w/rflx Micro + Cult Today Z00.00 - Encounter for general adult medical examination without abnormal findings Lipid Panel Today Z00.00 - Encounter for general adult medical examination without abnormal findings Prostate Specific Antigen Scr Today Z12.5 - Encounter for screening for malignant neoplasm of prostate
--- OUTSIDE RECORDS SUMMARY | 2024-11-14 09:50 | XMS_ITS ---
Author Organization [facility] Address [address] [place] [address] Care Team Providers Care Digital Forensics Examiner Name Role Phone Andrea Rawls Primary Care Provider Unav ailable Black, Joan Unavailable [phone] REASON FOR VISIT Painful Toe(s) Medications Medication SIG (Take, Route, Frequency, Duration) Notes Start Date End Date Status Custom Orthotics as directed 08/06/2019 Not-Taking Simvastatin 10 MG Oral for 90 Days Active FLUoxetine HCl 20 MG 1 tablet in the mor nikhil Orally Once a day for 90 days 05/03/2013 Active Omeprazole 20 MG 1 capsule Orally Onc e a day for 30 day(s) 05/22/2019 Active Naproxen 375 MG 1 tablet with food o r milk as needed Orally every 12 hrs for 30 days PRN 08/06/2019 Active Social History Tobacco Use/Smoking Question Answer Notes Additional Findings: Tobacco Non-User Current no n-smoker Alcohol Screen Question Answer Notes Did you have a drink contain ing alcohol in the past year? Yes How often did you have a dri nk containing alcohol in the past year? Monthly or less (1 point) Points 1 Interpretation Negative Tobacco use other than smoking: Question Answer Notes Are you an other tobacco user? No Problems Problem Type SNOMED Code ICD Code Onset Dates Problem Status W/U Status Risk Notes Problem Acquired hammer toe of left foot (8217552784897073) Other hammer toe(s) (acquired), left foot (M20.42) Active confirmed Problem Localized, primary osteoarthritis of the ankle and/or foot (355132640) Arthritis of joint of lesser toe, left (M19.072) Active confirmed Vital Signs Height 6 ft in 05/11/2024 Weight 190 lbs lbs 05/11/2024 BMI 25.77 kg/m2 05/11/2024 Encounters Encounter Location Date Provider Diagnosis [facility] [place] [address] 05/11/2024 Joan Larry Other hammer toe(s) (acquired), left foot M20.42 ; Arthritis of joint of lesser toe, left M19.072 ; Subluxation of metatarsophalangeal joint of toe, initial encounter S93.149A and Neuralgia and neuritis, unspecified M79.2 Assessments Encounter Date Diagnosis (ICD Code) Assessment Notes Treatment Notes Treatment Clinical Notes Section Notes 05/11/2024 Other hammer toe(s) (acquired), left foot (ICD-10 - M20.42) 05/11/2024 Arthritis of joint o f lesser toe, left (ICD-10 - M19.072) 05/11/2024 Subluxation of metatarsophalangeal joint of toe, initial encounter (ICD-10 - S93.149A) 05/11/2024 Neuralgia and neurit is, unspecified (ICD-10 - M79.2) Plan Of Treatment Next Appt Details Follow Up: prn, Reason: Progress Notes * Du GHOTRADOB: 9 (53 yo M)Acc No.[id number]:05/11/2024 Progress Notes Patient:?Du GHOTRA Provider:?Joan Juarez DPM :1970???Age:53 Y???Sex:Male Balwinder e:05/11/2024 Address: [address] [place] Pcp:NE Borrero Subjective: * Chief Complaints: * ???Painful Toe(s) * HPI: ???Toe pain:?Nature:?, tingling.?Location:?Left foot.?Duration:?, several weeks.?Course:?, improved.?Aggravated by:?any pressure, shoes.?Treatments:?rest/alter normal daily activity, change in shoes.? * ROS:?General/Constitutional:?Nausea?denies.?Vomiting?denies.?Hunger Thirst?denies.?Loss appetite?denies.?Chills?denies.?Fatigue?denies.?Fever?denies.?Night Sweats?denies.?Unexplained weight loss?denies.?Unexplained weight gain?denies.?HEENTM:?Dentures?denies.?Dizziness?denies.?Glasses/contacts?denies.?Retinopathy?de nies.?Blurred/double vision?denies.?TMJ?denies.?Discharge/drainage?denies.?Implants?denies.?Sore throat?denies.?Dental implants?denies.?Hard of hearing ?denies.?Difficulty chewing/swallowing/speaking?denies.?Nose bleeds?denies.?Sore mouth?denies.?Respiratory:?On Oxygen?denies.?Pneumonia/pleurisy?denies.?Bronchitis?denies.?Emphysema?denies.?C oughing?denies.?Cough blood?denies.?Shortness of breath?denies.?Wheezing?denies.?Cardiovascular:?Pacemaker?denies.?MVP?denies.?WPW?denies.?CHF?denies.?Heart attack?denies.?Septal defect?denies.?Rapid beat?denies.?Chest pain ?denies.?Atrial Fib.?denies.?Murmur/Palpitations?denies.?Gastrointestinal:?Hemorrhoids?denies.?Stomach/Abdominal pain?denies.?Dark blood stool?denies.?Irritable bowel ?denies.?Constipation?denies.?Diarrhea?denies.?Hematology:?Swelling?denies.?Clots?denies.?Varicose Veins?denies.?Bruising?denies.?Bleeding problem?denies.?Genitourinary:?Blood urine?denies.?Frequent/Painfu/urination/bladder control?denies.?Kidney stones?denies.?Infection (UTI)?denies.?Nephropathy?denies.?sex trans dis (STD)?denies.?Prostate?denies.?Musculoskeletal:?Hammertoes?denies.?Bunions?denies.?Back Pain?denies.?Muscle Cramps/ Resting?denies.?Muscle cramps / walking?denies.?Generalized aches and pains?denies.?Weakness?denies.?Integ.:?Ortiz?denies.?Scars?denies.?Corns/calluses?denies.?Ingrown nails?denies.?Painful nails?denies.?Open Sores?denies.?Rashes?denies.?Neurologic:?Difficulty sleeping?denies.?Brain disorder?denies.?Numbness?denies.?Balance trouble?denies.?Confusion?denies.?Fainting/blackouts?denies.?Tingling?admits.?Tr emors?denies.? * Medical History:? * Surgical History:?left shoul richard cuff left ankle * Hospitalization/Major Diagno stic Procedure:?Denies Past Hospitalization * Family History:?Mother: jose daniel yang, Healthy, diagnosed with Other malignant neoplasm of unspecified site.?Father: alive, cancer, diagnosed with Diabetic - NIDDM, Unspecified essential hypertension, Other malignant neoplasm of unspecified site.?Paternal Grand Mother: .?Siblings: None.?Spouse: alive.?Children: alive, Healthy.? * Social History:?Tobacco Use:?Tobacco Use/Smoking?Additional Findings: Tobacco Non-User?Current non-smoker ?Tobacco use other than smoking?Are you an other tobacco user??No ???Drugs/Alcohol:?Drugs?Have you used drugs other than those for medical reasons in the past 12 months??No ?Alcohol Screen?Did you have a drink containing alcohol in the past year??Yes ?How often did you have a drink containing alcohol in the past year??Monthly or less (1 point) ?Points?1 ?Interpretation?Negative ???Miscellaneous:?Caffeine: yes, 1 cup. ?Children: yes, 2. ?Exercise: no. ?Marital status: . ?Occupation: dumper operator. * Medications:?TakingSimvastat in 10 MG Tablet Oral FLUoxetine HCl 20 MG Tablet 1 tablet in the morning Orally Once a day Omeprazole 20 MG Capsule Delayed Release 1 capsule Orally Once a day Naproxen 375 MG Tablet 1 tablet with food or milk as needed Orally every 12 hrs , Notes to Pharmacist: PRNTaking Simvastatin 10 MG Tablet Oral Taking FLUoxetine HCl 20 MG Tablet 1 tablet in the morning Orally Once a day Taking Omeprazole 20 MG Capsule Delayed Release 1 capsule Orally Once a day Taking Naproxen 375 MG Tablet 1 tablet with food or milk as needed Orally every 12 hrs , Notes to Pharmacist: PRNNot-Taking/PRNCustom Orthotics as directed Medication List reviewed and reconciled with the patientNot-Taking/PRN Custom Orthotics as directed Medication List reviewed and reconciled with the patient * Allergies:?yes[Allergies Charles ified] Objective: * Vitals:?Ht: 6 ft, Wt:190 lbs , BMI:25.77, Shoe size: 10.5, Ht-cm: 182.88 cm, Wt- k.18 kg. * Examination: ???General Examination: ?GENERAL APPEARANCE:?good attention to hygiene, no acute distress, well developed, well nourished.?Vascular: ?DP PULSES (B):?/, B/L.?PT PULSES (B):?2/4, B/L.?CAPILLARY FILL TIME:?3 secs. per digit, B/L.?TROPHIC CONDITION-TEXTURE/ELASTICITY/TURGOR/HAIR GROWTH (B):?normal, B/L.?TEMPERTURE GRADIENT (C):?warm to cool, proximal to distal, B/L.?PIGMENTATION:?normal, B/L.?EDEMA (C):?absent, B/L.?Neurological: ?SENSORY:?Neurological exam reveals intact sensorium, pain sensation normal, vibration sensation intact, pinprick sensation is normal in the lower extremities, , Pt relates , tingling resolved.?Orthopedic: ?MUSCLE STRENGTH:?5/5 all groups in a symmetrical fashion , B/L.?BUNION:??Limited 1st MPJ Dorsal ROM, ( + ) Hallux extensus right.?DIGITAL DEFORMITIES:?Digital contracture, PIPJ, 2-5 B/L, incompl-reducable to push-up test, no over, nor underlapping.?MPJ PATHOLOGY:?Atrophied anterior fat pad,?.?Dermatologic: ?SKIN FINDINGS:?Skin exam reveals normal texture, elasticity, and tugor. There are no masses. The interspaces are clear.? Assessment: * Assessment: 1.?Other hammer toe(s) (acqu ired), left foot - M20.42???2.?Arthritis of joint of lesser toe, left - M19.072???3.?Subluxation of metatarsophalangeal joint of toe, initial encounter - S93.149A???4.?Neuralgia and neuritis, unspecified - M79.2??? Plan: * Treatment: * Procedure Codes:? * Preventive Medicine:? ??Counseling:?Discussion:?-02: Office or other outpatient visit for the evaluation and management of a new patient, which required a medically appropriate history and/or examination and STRAIGHTFORWARD level of MEDICAL DECISION MAKING, 1 SELF-LIMITED OR MINOR PROBLEM, MINIMAL- NO AMOUNT/COMPLEXITY OF DATA TO BE REVIEWED/ANALYZED, AND MINIMAL RISK OF COMPLICATION/MORBIDITY. The visit on the day of the encounter encompassed interpreting the data and educating the patient as to the nature of their condition, treatment options available according to their individual PMH, meds, allergies, and overall health/living conditions, as well as any potential risks or complications that may occur from a failure to adhere to, and participate in, the recommended course of therapy. The discussion included a complete verbal, and/or written explanation of the examination results, any x-rays taken, the proposed diagnosis, and outline of the treatment plan. A schedule for future care needs was also explained. The patient verbalized an understanding of the instructions at this time and agreed to be an active participant in their treatment. If the patient should think of any questions or concerns after the visit, I have encouraged the patient to call the office, Given recent successful results to treatment, The patient wishes to continue with the present treatment plan for their condition.? * Follow Up:?prn * Images: * Sign off status: Completed true * Provider:?Joan Juarez DPM Date:?2023 Generated for Linnea arnold/Sy/Lucila on:?11/14/2024 09:50 AM EDT History and Physical Notes * HPI (History of Present Illness) Category Sub-Category Detail Notes Category Not es Toe pain Nature: , tingling Location: Left foot Duration: , several weeks Course: , improved Aggravated by: any pressure, shoes Treatments: rest/alter normal da kaela activity, change in shoes Examination Category Sub-Category Detail Notes Category Not es Neurological SENSORY: Neurological exa m reveals intact sensorium, pain sensation normal, vibration sensation intact, pinprick sensation is normal in the lower extremities, , Pt relates , tingling resolved Dermatologic SKIN FINDINGS: Skin exam reveal s normal texture, elasticity, and tugor. There are no masses. The interspaces are clear Orthopedic BUNION: Limited 1st MPJ Dorsal ROM, ( + ) Hallux extensus right DIGITAL DEFORMITIES: Digital contracture , PIPJ, 2-5 B/L, incompl-reducable to push-up test, no over, nor underlapping MPJ PATHOLOGY: Atrophied anterior f at pad, MUSCLE STRENGTH: 5/5 all groups in a symmetrical fashion , B/L General Examination GENERAL APPEARANCE: good att ention to hygiene, no acute distress, well developed, well nourished Vascular DP PULSES (B): 2/4, B/L PT PULSES (B): 2/4, B/L CAPILLARY FILL TIME: 3 secs. per digit, B/L TEMPERTURE GRADIENT (C): warm to cool, p roximal to distal, B/L TROPHIC CONDITION-TEXTURE/ELASTICITY/TURGOR/HAIR GROWTH (B): normal, B/L EDEMA (C): absent, B/L PIGMENTATION: normal, B/L
--- OUTSIDE RECORDS SUMMARY | 2024-11-14 09:50 | XMS_ITS | Patient Health Record ---
Author Organization [facility] Address [address] [facility] [address] [place] [address] Care Team Providers Care Reliability Technologist Name Role Phone Andrea Rawls Primary Care Provider Unav ailable Black, Joan Unavailable [phone] Reason For Referral No Information Medications Medication SIG (Take, Route, Frequency, Duration) [...] hrs for 30 days PRN 08/06/2019 Active Immunizations Vaccine Route Administration Date Status Comme nts Influenza Unknown 05/22/2019 Administered Social History Tobacco Use/Smoking Question Answer Notes [...] Problem Acquired hammer toe of left foot (8952205922572351 ) Other hammer toe(s) (acquired), left foot (M20.42) Active confirmed Problem 1963170 Arthritis (M19.90) Active confirmed Problem [id number] Hammer toe of right foot (M20.41) Active confirmed Problem Acquired deformity of right foot (6777257577695650 0) PlantarFlexion of metatarsal of right foot (M21.6X1) Active confirmed Problem Localized, primary osteoarthritis of the ankle and/or foot (958707887) Arthritis of joint of lesser toe, left (M19.072) Active confirmed Vital Signs Height 6 ft in 05/11/2024 Weight 190 lbs lbs 05/11/2024 BMI 25.77 kg/m2 05/11/2024 Encounters Encounter Location Date Provider Diagnosis [facility] [address] 05/11/2024 Joan Juarez Other hammer toe(s) (acquired), left foot M20.42 [...] unspecified (ICD-10 - M79.2) Plan Of Treatment No Information Insurance Providers Payer Name Payer Address Payer Phone Subscriber Number Group Number Insured Name Patient Relationship to Insured Coverage Start Date Coverage End Date [employer] [address] [place] [address] [phone] [id number] [phone] [id number] [place] Self - patient is the insured Medical (General) History Medical History History ICD Code anxiety depression Broken bones Warts Chicken pox Joint implants/screws Reflux ( GERD) Surgical History Surgery Date(Month/Year) left shoulder cuff left ankle
== END 2024-11-14 10:21 | disposition home or self-care (01) ==
LOC: HO.HMCC 09:00
PROVIDERS: PCP Nurse Practitioner Family; Visit Provider Nurse Practitioner Family
DX: Z00.00 Encounter for general adult medical examination without abnormal findings (principal); Z12.5 Encounter for screening for malignant neoplasm of prostate

== ENCOUNTER → 2024-11-14 09:00 | Outpatient (BNVA) | payer BC, SELFPAY | PROVIDERS: PCP Nurse Practitioner Family; Visit Provider Nurse Practitioner Family | DX: Z00.00 Encounter for general adult medical examination without abnormal findings (principal) | CPT/HCPCS: 96127 ==

== ENCOUNTER 2024-11-15 06:31 | Outpatient (REF) | payer BC, SELFPAY ==
[2024-11-15 10:00] LABS: MANUAL DIFF FLAG NO
[2024-11-15 10:05] LABS: Basophils Absolute Auto 0.1 X10*3/uL (0.0-0.2); Basophils Percent Auto 1.4 % (0-2); Eosinophils Absolute Auto 0.4 X10*3/uL (0.0-0.4); Hematocrit 45.9 % (42.0-52.0); Hemoglobin 16.1 g/dl (14.0-18.0); Imm Gran Abs Auto 0.01 X10*3/uL (0.00-0.03); Imm Gran Pct Auto 0.2 % (0.0-0.4); Lymphocytes Absolute Auto 1.8 X10*3/uL (1.2-4.9); Lymphocytes Percent Auto 40.8 % (20-40); Mean Corpuscular HGB Conc 35.1 g/dl (31.0-36.0); Mean Corpuscular Hemoglobin 31.4 pg (27.0-33.0); Mean Corpuscular Volume 89.6 fL (80.0-98.0); Mean Platelet Volume 9.9 fL (9.4-12.4); Monocytes Absolute Auto 0.5 X10*3/uL (0.1-1.2); Monocytes Percent Auto 11.5 % (2-11); Neutrophils Absolute Auto 1.7 x10*3/uL (2.0-8.3); Neutrophils Percent Auto 38.1 % (45-73); Platelet Count 229 X10*3/uL (160-400); Red Blood Count 5.12 X10*6/uL (4.60-5.80); White Blood Count 4.4 X10*3/uL (4.8-10.8)
[2024-11-15 10:25] LABS: Appearance Urine Clear; Color Urine Yellow; Glucose Urine UA Negative (Negative); Leukocyte Esterase Urine Negative (Negative); Nitrite Urine Negative (Negative); Specific Gravity - Urine 1.015 (1.005-1.025); Urine Blood Negative (Negative); Urine Ketones Trace mg/dL (Negative); Urine Protein Negative (Neg-Trace)
[2024-11-15 10:38] LABS: Prostate Specific Antigen Scr 1.16 ng/mL (<0.05-4.0)
[2024-11-15 10:39] LABS: Alanine Aminotransferase 24 U/L (0-40); Albumin Level 4.1 g/dL (3.5-5.0); Alkaline Phosphatase 52 U/L (39-117); Anion Gap 11 (12-20); Aspartate Amino Transferase 39 U/L (5-37); Bilirubin Total 0.9 mg/dL (0.0-1.0); Blood Urea Nitrogen 19 mg/dL (9-16); Calcium 9.2 mg/dL (8.4-10.2); Carbon Dioxide 26 mmol/L (22-29); Chloride 107 mmol/L (96-108); Cholesterol 195 mg/dL (<200); Estimated Glomerular Filt Rate > 60; Glucose Fasting 78 mg/dL (60-99); HDL Cholesterol 58 mg/dL (>40); LDL Cholesterol Calculated 121 mg/dL (<100); Potassium 4.1 mmol/L (3.3-5.1); Sodium 140 mmol/L (135-145); TSH reflex Free T4 1.58 uIU/mL (0.32-4.0); Total Protein 7.1 g/dL (6.5-8.0); Triglycerides 81 mg/dL (<150)
== END 2024-11-15 06:32 | disposition home or self-care (01) ==
LOC: HO.HMGCLDS 06:31
PROVIDERS: PCP Nurse Practitioner Family; Visit Provider Nurse Practitioner Family
DX: Z00.00 Encounter for general adult medical examination without abnormal findings (principal); Z12.5 Encounter for screening for malignant neoplasm of prostate; Z13.6 Encounter for screening for cardiovascular disorders
CPT/HCPCS: 36415; 80053; 80061; 81003; 84153; 84443; 85025

== ENCOUNTER 2024-12-07 09:53 | Outpatient (REF) | payer BC, SELFPAY ==
--- NOTE | ~2024-12-07 | US_ITS ---
CLINICAL HISTORY: R74.8 - Abnormal levels of other serum enzymes US abdomen complete Comparison: None Findings: The visualized pancreas is normal. The aorta and inferior vena cava are normal caliber. The appearance of the liver suggests fatty infiltration without focal lesion. There is no intrahepatic bile duct dilatation. The common duct is 2.6 mm in diameter. The gallbladder is normal. There is no sonographic Adams sign. The main portal vein is antegrade. The right kidney is 11.0 cm in length. The left kidney is 11.8 cm in length. The spleen is normal. No ascites. IMPRESSION: 1. Hepatic steatosis. This document has been electronically signed by: Du Groves MD on 12/08/2024 09:14:31
--- OUTSIDE RECORDS SUMMARY | 2024-12-07 10:36 | XMS_ITS | Patient Health Record ---
Author Organization [facility] Address [address] [place] [address] Care Team Providers Care Repatcher Name Role Phone Andrea Rawls Primary Care Provider Unav ailable Black, Joan Unavailable [phone] Reason For Referral No Information Medications Medication [...] Problem Acquired hammer toe of left foot (8846958910411208 ) Other hammer toe(s) (acquired), left foot (M20.42) Active confirmed Problem 6793822 Arthritis (M19.90) Active confirmed Problem 423791142 Hammer toe of right foot (M20.41) Active confirmed Problem Acquired deformity of right foot (7608983105196745 0) PlantarFlexion of metatarsal of right foot (M21.6X1) Active confirmed Problem Localized, primary osteoarthritis of the ankle and/or foot (722617393) Arthritis of joint of lesser toe, left (M19.072) Active confirmed Vital Signs Height 6 ft in 05/11/2024 Weight 190 lbs lbs 05/11/2024 BMI 25.77 kg/m2 05/11/2024 Encounters Encounter Location Date Provider Diagnosis [facility] [address] 05/11/2024 Joan Juarez Other hammer toe(s) (acquired), [...] End Date [employer] [address] [place] [address] [phone] [id number] [phone] Du Vann Self - patient is the insured Medical (General) History Medical History History ICD Code anxiety depression Broken bones Warts Chicken pox Joint implants/screws Reflux ( GERD) Surgical History Surgery Date(Month/Year) left shoulder cuff left ankle
--- OUTSIDE RECORDS SUMMARY | 2024-12-07 10:36 | XMS_ITS ---
[facility] Address [address] [place] [address] Care Team Providers Care Dean Of Students Name Role Phone Andrea Rawls Primary Care Provider Unav ailable Black, Joan Unavailable [phone] REASON FOR VISIT Painful Toe(s) Medications Medication [...] Problem Acquired hammer toe of left foot (9707315072599527) Other hammer toe(s) (acquired), left foot (M20.42) Active confirmed Problem Localized, primary osteoarthritis of the ankle and/or foot (350677358) Arthritis of joint of lesser toe, left (M19.072) Active confirmed Vital Signs Height 6 ft in 05/11/2024 Weight 190 lbs lbs 05/11/2024 BMI 25.77 kg/m2 05/11/2024 Encounters Encounter Location Date Provider Diagnosis [facility] [place] [address] 05/11/2024 Joan Larry Other hammer toe(s) (acquired), [...] * Du GHOTRADOB: 9 (53 yo M)Acc No.[id number]:05/11/2024 Progress Notes Patient:?Du GHOTRA Provider:?Joan Juarez DPM :1970???Age:53 Y???Sex:Male Balwinder e:05/11/2024 Address: [address] [place] Pcp:NE Borrero Subjective: * Chief Complaints: * [...] 2. ?Exercise: no. ?Marital status: . ?Occupation: heavy equipment supervisor. * Medications:?TakingSimvastat in 10 MG Tablet Oral [...] Juarez DPM Date:?2023 Generated for Linnea arnold/Sy/Lucila on:?12/07/2024 10:36 AM EDT History and Physical Notes * [...]
== END 2024-12-07 09:54 | disposition home or self-care (01) ==
LOC: HO.HMGCX 09:53
PROVIDERS: PCP Nurse Practitioner Family; Visit Provider Nurse Practitioner Family
DX: R74.8 Abnormal levels of other serum enzymes (principal)
CPT/HCPCS: 76700

== ENCOUNTER → 2024-12-07 10:01 | Outpatient (BNV) | payer BC, SELFPAY | PROVIDERS: PCP Nurse Practitioner Family; Visit Provider Specialist | DX: R74.8 Abnormal levels of other serum enzymes (principal) | CPT/HCPCS: 76700 ==